=== PATIENT | male | born 1950 | race African-American/Black ===

== ENCOUNTER 2019-06-15 15:10 | Inpatient (IN) | payer MEDICAID, MEDICARE ==
[~2019-06-15] VITALS: Ht 180.3 cm; Wt 93.9 kg
[~2019-06-15 15:10] MED LIST: ARIP15TA2 PO; BUPR-93 PO; ESCI20TA PO; MIRT15 PO; VITAD1000 PO
[2019-06-15] MEDS ORDERED: ESCI20TA PO (15:35)
[2019-06-15] MEDS ORDERED: SERT100T12 PO (15:35)
[2019-06-15] MEDS ORDERED: QUET200T PO (15:35)
[2019-06-15] MEDS ORDERED: ARIP10TA8 PO (15:35)
[2019-06-15] MEDS ORDERED: BUPR100 PO (15:35)
[2019-06-15] MEDS ORDERED: QUEtiapine FUMARATE 100 MG TABLET PO ONE (16:00)
[2019-06-15 16:04] LABS: BASOPHILS % (AUTO) 0.7 % (0.0-2.0); EOSINOPHILS % (AUTO) 2.5 % (1.0-6.0); HEMATOCRIT 49.4 % (41-53); HEMOGLOBIN 15.8 g/dL (13.5-17.5); LYMPHOCYTES # (AUTO) 1.1 K/uL (1.0-4.8); LYMPHOCYTES % (AUTO) 20.1 % (22.0-44.0); MEAN CORPUSCULAR HEMOGLOBIN 26.9 pg (26.0-34.0); MEAN CORPUSCULAR HGB CONC 31.9 G/dL (31.0-37.0); MEAN CORPUSCULAR VOLUME 84 fL (80-100); MONOCYTES # (AUTO) 0.6 K/uL (0.1-1.0); MONOCYTES % (AUTO) 11.1 % (2.0-9.0); NEUTROPHILS # (AUTO) 3.5 K/uL (1.8-7.7); NEUTROPHILS % (AUTO) 65.6 % (40.0-70.0); PLATELET COUNT (AUTO) 352 K/uL (150-450); RED BLOOD CELL COUNT(AUTO) 5.86 MIL/uL (4.50-5.90); RED CELL DISTRIBUTION WIDTH 13.6 % (11.5-14.5)
[2019-06-15 16:33] LABS: ALBUMIN 4.1 g/dL (3.4-5.0); ALKALINE PHOSPHATASE 158 U/L (46-116); ASPARTATE AMINOTRANSFERASE 24 U/L (15-37); BILIRUBIN,TOTAL 1.7 mg/dL (0.1-1.0); CALCIUM, TOTAL 9.3 mg/dL (8.8-10.5); CHLORIDE 100 mmol/L (98-107); CREATININE 1.78 mg/dL (0.60-1.30); GLOMERULAR FILTR. RATE CALC 46 mL/min (>60); GLUCOSE,RANDOM 158 mg/dL (70-110); POTASSIUM 4.3 mmol/L (3.5-5.1); SODIUM SERUM 136 mmol/L (136-145); TOTAL PROTEIN, SERUM 7.8 g/dL (6.4-8.2)
[2019-06-15 16:43] LABS: ALANINE AMINOTRANSFERASE 25 U/L (12-78); ANION GAP 12 mmol/L (8-16); CARBON DIOXIDE 24 mmol/L (22-29); UREA NITROGEN, BLOOD 23 mg/dL (7-18)
[2019-06-15] MEDS ORDERED: HALOPERIDOL 5 MG TABLET PO PRN (17:15)
[2019-06-15] MEDS ORDERED: LORazepam 2 MG TABLET PO PRN (17:15)
[2019-06-15] MEDS ORDERED: ZOLPIDEM TARTRATE 10 MG TABLET PO PRN (17:15)
[2019-06-15] MEDS ORDERED: IBUPROFEN 400 MG TABLET PO PRN (17:30)
[2019-06-15] MEDS ORDERED: ACETAMINOPHEN 325 MG TABLET PO PRN (17:30)
[2019-06-15] MEDS ORDERED: PNEUMOCOCCAL VACCINE POLYVALENT 0.5 ML VIAL [PPSV23] IM ONE (21:00)
[2019-06-15 21:13] VITALS: BP 109/70
[2019-06-16 05:56] VITALS: BP 105/68
[2019-06-16 08:03] VITALS: BP 143/88
[2019-06-16 09:05] LABS: BASOPHILS % (AUTO) 0.8 % (0.0-2.0); EOSINOPHILS % (AUTO) 5.3 % (1.0-6.0); HEMATOCRIT 46.6 % (41-53); HEMOGLOBIN 14.9 g/dL (13.5-17.5); LYMPHOCYTES # (AUTO) 1.8 K/uL (1.0-4.8); LYMPHOCYTES % (AUTO) 31.8 % (22.0-44.0); MEAN CORPUSCULAR HGB CONC 31.9 G/dL (31.0-37.0); MEAN CORPUSCULAR VOLUME 85 fL (80-100); MONOCYTES # (AUTO) 0.7 K/uL (0.1-1.0); MONOCYTES % (AUTO) 12.4 % (2.0-9.0); NEUTROPHILS # (AUTO) 2.9 K/uL (1.8-7.7); NEUTROPHILS % (AUTO) 49.7 % (40.0-70.0); PLATELET COUNT (AUTO) 295 K/uL (150-450); RED CELL DISTRIBUTION WIDTH 13.5 % (11.5-14.5)
[2019-06-16 09:15] LABS: HEMOGLOBIN A1C 5.7 % (4.5-6.2)
[2019-06-16 09:33] LABS: ALBUMIN 3.7 g/dL (3.4-5.0); BILIRUBIN,TOTAL 0.7 mg/dL (0.1-1.0); CALCIUM, TOTAL 9.2 mg/dL (8.8-10.5); CHOL/HDL RATIO 5.1 (4.2-7.3); CREATININE 1.44 mg/dL (0.60-1.30); FREE T4 (FREE THYROXINE) 0.81 ng/dL (0.76-1.46); POTASSIUM 4.9 mmol/L (3.5-5.1); THYROID STIMULATING HORMONE 0.42 uIU/mL (0.36-3.74); TOTAL PROTEIN, SERUM 6.7 g/dL (6.4-8.2)
[2019-06-16] MEDS: ARIPiprazole 10 MG TABLET PO SCH (13:19)
[2019-06-16] MEDS: BuPROPion HCL XL 150 MG ER TABLET PO SCH (13:19)
[2019-06-16 16:05] VITALS: BP 106/67
[2019-06-16] MEDS: QUEtiapine FUMARATE 200 MG TABLET PO SCH (20:31)
[2019-06-17 03:21] VITALS: BP 130/83
[2019-06-17 08:17] VITALS: BP 110/62
[2019-06-17] MEDS: BuPROPion HCL XL 150 MG ER TABLET PO SCH (08:31)
[2019-06-17] MEDS: ARIPiprazole 10 MG TABLET PO SCH (08:31)
[2019-06-17] MEDS: NYSTATIN 15 GM POWDER BOTTLE TP SCH ×2 (09:30→16:32)
[2019-06-17] MEDS: ESCITALOPRAM OXALATE 10 MG TABLET PO SCH (12:02)
[2019-06-17] MEDS ORDERED: GuaiFENesin/D-METHORPHAN [SUGAR-FREE] 200-20MG/10 ML SYRUP UDCUP PO PRN (14:45)
[2019-06-17] MEDS ORDERED: PETROLATUM,WHITE 28 GM JELLY TP PRN (14:45)
[2019-06-17] MEDS ORDERED: DOCUSATE SODIUM 100 MG CAPSULE PO PRN (14:45)
[2019-06-17] MEDS ORDERED: LOPERAMIDE HCL 2 MG CAPSULE PO PRN (14:45)
[2019-06-17] MEDS ORDERED: CloNIDine HCL 0.1 MG TABLET PO PRN (14:45)
[2019-06-17] MEDS ORDERED: ONDANSETRON HCL 4 MG TABLET PO PRN (14:45)
[2019-06-17] MEDS ORDERED: ACETAMINOPHEN 325 MG TABLET PO PRN (14:45)
[2019-06-17] MEDS ORDERED: MAGNESIUM HYDROXIDE SUSPENSION 30 ML UDCUP PO PRN (14:45)
[2019-06-17] MEDS ORDERED: IBUPROFEN 400 MG TABLET PO PRN (14:45)
[2019-06-17] MEDS ORDERED: MAG HYDROX/AL HYDROX/SIMETH ES 30 ML SUSPENSION UDCUP PO PRN (14:45)
[2019-06-17] MEDS ORDERED: ALBUTEROL SULFATE HFA 90 MCG/PUFF 8 GM INHALER IH PRN (14:45)
[2019-06-17] MEDS ORDERED: NICOTINE 14 MG/24 HOUR PATCH TD PRN (14:45)
[2019-06-17] MEDS: DENTURE ADHESIVE 68 GM CREAM DT PRN (15:55)
[2019-06-17 16:00] VITALS: BP 118/73
[2019-06-17] MEDS: QUEtiapine FUMARATE 200 MG TABLET PO SCH (20:30)
[2019-06-18 00:20] VITALS: BP 121/68
[2019-06-18 08:15] VITALS: BP 122/71
[2019-06-18] MEDS: ARIPiprazole 10 MG TABLET PO SCH (08:46)
[2019-06-18] MEDS: ESCITALOPRAM OXALATE 10 MG TABLET PO SCH (08:46)
[2019-06-18] MEDS: NYSTATIN 15 GM POWDER BOTTLE TP SCH (08:46)
[2019-06-18] MEDS: BuPROPion HCL XL 150 MG ER TABLET PO SCH (08:46)
[2019-06-18] MEDS: DENTURE ADHESIVE 68 GM CREAM DT PRN (10:43)
[2019-06-18 16:00] VITALS: BP 134/90
[2019-06-18] MEDS ORDERED: BUPR-93 PO (16:13)
[2019-06-18] MEDS ORDERED: ESCI10TA PO (16:13)
== END 2019-06-18 18:52 | disposition home or self-care (01) | DRG 885 ==
LOC: EMS 15:11 → UNDOADMIN 19:10 → B2X 19:10
PROVIDERS: ADMIT Psychiatry & Neurology Child & Adolescent Psychiatry; ATTEND Psychiatry & Neurology Child & Adolescent Psychiatry
DX: F25.1 Schizoaffective disorder, depressive type (principal); N18.9 Chronic kidney disease, unspecified; N17.9 Acute kidney failure, unspecified; R45.851 Suicidal ideations; F41.1 Generalized anxiety disorder; F43.10 Post-traumatic stress disorder, unspecified; G47.00 Insomnia, unspecified; M17.0 Bilateral primary osteoarthritis of knee; F17.210 Nicotine dependence, cigarettes, uncomplicated; Z79.899 Other long term (current) drug therapy; Z91.14 Patient's other noncompliance with medication regimen
CPT/HCPCS: 83036; 84439; 84443; G0480

== ENCOUNTER 2019-11-01 15:17 | Inpatient (IN) | payer OTHER ==
[~2019-11-01] VITALS: Ht 180.3 cm; Wt 120.5 kg
[~2019-11-01 15:17] MED LIST changes: +ARIP10TA8 PO; -ARIP15TA2 PO; +ESCI10TA PO; -ESCI20TA PO; -MIRT15 PO; +QUET200T PO; -VITAD1000 PO
[2019-11-01] MEDS ORDERED: 0.9% SODIUM CHLORIDE 10 ML SYRINGE IVP PRN (18:00)
[2019-11-01 18:18] LABS: EOSINOPHILS % (AUTO) 11.7 % (1.0-6.0); HEMATOCRIT 43.7 % (41-53); HEMOGLOBIN 14.3 g/dL (13.5-17.5); LYMPHOCYTES # (AUTO) 1.5 K/uL (1.0-4.8); MEAN CORPUSCULAR HEMOGLOBIN 27.3 pg (26.0-34.0); MEAN CORPUSCULAR HGB CONC 32.8 G/dL (31.0-37.0); MEAN CORPUSCULAR VOLUME 83 fL (80-100); MONOCYTES # (AUTO) 0.6 K/uL (0.1-1.0); MONOCYTES % (AUTO) 10.4 % (2.0-9.0); NEUTROPHILS # (AUTO) 3.2 K/uL (1.8-7.7); NEUTROPHILS % (AUTO) 51.9 % (40.0-70.0); PLATELET COUNT (AUTO) 287 K/uL (150-450); RED BLOOD CELL COUNT(AUTO) 5.24 MIL/uL (4.50-5.90); RED CELL DISTRIBUTION WIDTH 13.7 % (11.5-14.5)
[2019-11-01 18:20] LABS: APPEARANCE,URINE CLEAR (CLEAR); BILIRUBIN,URINE NEGATIVE (NEGATIVE); GLUCOSE, URINE (UA) NEGATIVE (NEGATIVE); KETONES,URINE NEGATIVE (NEGATIVE); LEUKOCYTE ESTERASE ,URINE NEGATIVE (NEGATIVE); NITRATE,URINE NEGATIVE (NEGATIVE); OCCULT BLOOD,URINE NEGATIVE (NEGATIVE); PH,URINE 5.5 (5.0-8.0); PROTEIN,URINE NEGATIVE (NEGATIVE); UROBILINOGEN,URINE 0.2 mg/dL (<=1.0)
[2019-11-01 18:31] LABS: ANION GAP 8 mmol/L (8-16); CALCIUM, TOTAL 8.9 mg/dL (8.8-10.5); CARBON DIOXIDE 28 mmol/L (22-29); CHLORIDE 105 mmol/L (98-107); CREATININE 1.28 mg/dL (0.60-1.30); GLOMERULAR FILTR. RATE CALC > 60 mL/min (>60); GLUCOSE,RANDOM 95 mg/dL (70-110); POTASSIUM 4.1 mmol/L (3.5-5.1); SODIUM SERUM 141 mmol/L (136-145); UREA NITROGEN, BLOOD 11 mg/dL (7-18)
[2019-11-01 18:37] LABS: ALANINE AMINOTRANSFERASE 38 U/L (12-78); ALBUMIN 3.7 g/dL (3.4-5.0); ALKALINE PHOSPHATASE 174 U/L (46-116); ASPARTATE AMINOTRANSFERASE 25 U/L (15-37); BILIRUBIN,TOTAL 0.6 mg/dL (0.1-1.0); TOTAL PROTEIN, SERUM 7.3 g/dL (6.4-8.2)
[2019-11-01 18:39] LABS: LACTIC ACID 0.8 mmol/L (0.4-2.0)
[2019-11-01] MEDS ORDERED: PIPERACILLIN/TAZO 3.375 GM/D5W 50 ML IV ONE (19:45)
[2019-11-01] MEDS ORDERED: VANCOMYCIN HCL 1 GM/D5% WATER 200 ML IV ONE (20:00)
[2019-11-01] MEDS ORDERED: ACETAMINOPHEN 325 MG TABLET PO PRN (20:00)
[2019-11-01] MEDS ORDERED: MORPHINE SULFATE 2 MG/ML SYRINGE IVP PRN (20:00)
[2019-11-01] MEDS ORDERED: MAGNESIUM HYDROXIDE SUSPENSION 30 ML UDCUP PO PRN (20:00)
[2019-11-01] MEDS ORDERED: OxyCODONE HCL/ACETAMINOPHEN 5-325 MG TABLET PO PRN (20:00)
[2019-11-01] MEDS: DOCUSATE SODIUM 100 MG CAPSULE PO SCH (21:00)
[2019-11-01] MEDS: QUEtiapine FUMARATE 100 MG TABLET PO SCH (21:19)
[2019-11-01 23:30] VITALS: BP 125/66
[2019-11-02] MEDS ORDERED: SODIUM CHLORIDE 0.9% 500 ML IV ONE (03:53)
[2019-11-02] MEDS: PIPERACILLIN/TAZO 3.375 GM/D5W 50 ML IV SCH ×4 (04:05→21:22)
[2019-11-02] MEDS: HEPARIN SODIUM,PORCINE 5,000 UNITS/ML VIAL SQ SCH ×4 (04:06→23:55)
[2019-11-02 04:58] VITALS: BP 128/73
[2019-11-02 07:51] VITALS: BP 146/76
[2019-11-02] MEDS: FAMOTIDINE 20 MG TABLET PO SCH (08:52)
[2019-11-02] MEDS: ASPIRIN 81 MG CHEWABLE TABLET PO SCH (08:52)
[2019-11-02] MEDS: DOCUSATE SODIUM 100 MG CAPSULE PO SCH ×2 (08:53→21:22)
[2019-11-02 11:21] VITALS: BP 127/69
[2019-11-02 16:05] VITALS: BP 120/80
[2019-11-02 20:05] VITALS: BP 137/73
[2019-11-02] MEDS: QUEtiapine FUMARATE 100 MG TABLET PO SCH (21:22)
[2019-11-02 23:10] VITALS: BP 144/70
[2019-11-03] MEDS: PIPERACILLIN/TAZO 3.375 GM/D5W 50 ML IV SCH ×2 (04:39→09:11)
[2019-11-03 04:40] VITALS: BP 141/75
[2019-11-03 07:48] VITALS: BP 132/80
[2019-11-03] MEDS: HEPARIN SODIUM,PORCINE 5,000 UNITS/ML VIAL SQ SCH (07:53)
[2019-11-03] MEDS: DOCUSATE SODIUM 100 MG CAPSULE PO SCH (08:27)
[2019-11-03] MEDS: FAMOTIDINE 20 MG TABLET PO SCH (08:27)
[2019-11-03] MEDS: ASPIRIN 81 MG CHEWABLE TABLET PO SCH (08:27)
[2019-11-03] MEDS ORDERED: FLUC50TA PO (09:39)
[2019-11-03] MEDS ORDERED: FLUCONAZOLE 100 MG TABLET PO ONE (09:45)
[2019-11-03 11:37] VITALS: BP 142/82
== END 2019-11-03 15:00 | disposition home or self-care (01) | DRG 728 ==
LOC: EMS 15:19 → 4E 22:36
PROVIDERS: ADMIT Internal Medicine; ATTEND Internal Medicine
DX: N49.2 Inflammatory disorders of scrotum (principal); F20.9 Schizophrenia, unspecified; M19.90 Unspecified osteoarthritis, unspecified site; F32.9 Major depressive disorder, single episode, unspecified; E66.9 Obesity, unspecified; F43.10 Post-traumatic stress disorder, unspecified; F99 Mental disorder, not otherwise specified; I86.1 Scrotal varices; Z87.891 Personal history of nicotine dependence; Z68.37 Body mass index [BMI] 37.0-37.9, adult
CPT/HCPCS: 76870; 83605; 87040; 87081; 96365; G0378; J1644; J2543; J3370; J7040

== ENCOUNTER 2020-09-24 13:07 | Emergency (ER) | payer OTHER ==
[~2020-09-24] VITALS: Ht 182.9 cm; Wt 127.3 kg
[~2020-09-24 13:07] MED LIST changes: -ARIP10TA8 PO; +ESCI-8 PO; -ESCI10TA PO; +FLUC50TA PO
[2020-09-24 14:25] LABS: COVID AG,FIA SOURCE NASOPHARYNGEAL
[2020-09-24 14:34] LABS: BASOPHILS % (AUTO) 0.9 % (0.0-2.0); EOSINOPHILS % (AUTO) 6.6 % (1.0-6.0); HEMATOCRIT 45.8 % (41-53); HEMOGLOBIN 14.8 g/dL (13.5-17.5); LYMPHOCYTES # (AUTO) 1.5 K/uL (1.0-4.8); MEAN CORPUSCULAR HEMOGLOBIN 26.8 pg (26.0-34.0); MEAN CORPUSCULAR HGB CONC 32.3 G/dL (31.0-37.0); MEAN CORPUSCULAR VOLUME 83 fL (80-100); MONOCYTES # (AUTO) 0.8 K/uL (0.1-1.0); MONOCYTES % (AUTO) 10.7 % (2.0-9.0); NEUTROPHILS # (AUTO) 4.3 K/uL (1.8-7.7); NEUTROPHILS % (AUTO) 60.8 % (40.0-70.0); PLATELET COUNT (AUTO) 322 K/uL (150-450); RED BLOOD CELL COUNT(AUTO) 5.52 MIL/uL (4.50-5.90); RED CELL DISTRIBUTION WIDTH 13.7 % (11.5-14.5)
[2020-09-24] MEDS ORDERED: MICONAZOLE NITRATE 2% 30 GM CREAM TP ONE (14:45)
[2020-09-24 14:56] LABS: ANION GAP 9 mmol/L (8-16); CALCIUM, TOTAL 9.1 mg/dL (8.8-10.5); CARBON DIOXIDE 29 mmol/L (22-29); CHLORIDE 105 mmol/L (98-107); CREATININE 1.39 mg/dL (0.60-1.30); GLUCOSE,RANDOM 102 mg/dL (70-110); POTASSIUM 3.8 mmol/L (3.5-5.1); SODIUM SERUM 143 mmol/L (136-145); UREA NITROGEN, BLOOD 14 mg/dL (7-18)
[2020-09-24 15:01] LABS: ALANINE AMINOTRANSFERASE 43 U/L (12-78); ALBUMIN 3.8 g/dL (3.4-5.0); ALKALINE PHOSPHATASE 179 U/L (46-116); ASPARTATE AMINOTRANSFERASE 29 U/L (15-37); BILIRUBIN,TOTAL 0.7 mg/dL (0.1-1.0); GLOMERULAR FILTR. RATE CALC > 60 mL/min (>60); TOTAL PROTEIN, SERUM 7.9 g/dL (6.4-8.2)
[2020-09-24] MEDS ORDERED: MECLIZINE HCL 25 MG TABLET PO ONE (15:30)
[2020-09-24 15:55] VITALS: BP 130/80
[2020-09-24 18:19] LABS: GLUCOSE,POINT OF CARE 83 MG/DL (70-110)
== END 2020-09-24 16:21 | disposition home or self-care (01) ==
LOC: EMS 13:22
DX: R42 Dizziness and giddiness (principal); R11.2 Nausea with vomiting, unspecified; Z20.828 Contact with and (suspected) exposure to other viral communicable diseases; F31.9 Bipolar disorder, unspecified; F20.9 Schizophrenia, unspecified; F17.210 Nicotine dependence, cigarettes, uncomplicated; Z79.899 Other long term (current) drug therapy
CPT/HCPCS: 70450; 82948; 87426; 93005

== ENCOUNTER 2024-06-20 14:26 | Emergency (ER) | payer OTHER ==
[~2024-06-20] VITALS: Ht 180.3 cm; Wt 121.8 kg
[~2024-06-20 14:26] MED LIST changes: +BUPR-514 PO; -BUPR-93 PO
[2024-06-20 14:40] VITALS: TEMP 97.9
[2024-06-20 15:20] LABS: BASOPHILS % (AUTO) 0.7 % (0.0-2.0); HEMATOCRIT 45.8 % (41-53); HEMOGLOBIN 14.7 g/dL (13.5-17.5); LYMPHOCYTES # (AUTO) 1.4 K/uL (1.0-4.8); LYMPHOCYTES % (AUTO) 16.8 % (22.0-44.0); MEAN CORPUSCULAR HEMOGLOBIN 26.3 pg (26.0-34.0); MEAN CORPUSCULAR VOLUME 82 fL (80-100); MONOCYTES # (AUTO) 0.8 K/uL (0.1-1.0); MONOCYTES % (AUTO) 10.2 % (2.0-9.0); NEUTROPHILS # (AUTO) 5.7 K/uL (1.8-7.7); NEUTROPHILS % (AUTO) 69.3 % (40.0-70.0); PLATELET COUNT (AUTO) 328 K/uL (150-450); RED BLOOD CELL COUNT(AUTO) 5.59 MIL/uL (4.50-5.90); RED CELL DISTRIBUTION WIDTH 14.7 % (11.5-14.5); WHITE BLOOD COUNT (AUTO) 8.2 K/uL (4.5-11.0)
[2024-06-20 15:26] LABS: ANION GAP 10 mmol/L (8-16); CALCIUM, TOTAL 8.6 mg/dL (8.8-10.5); CARBON DIOXIDE 24 mmol/L (22-29); CHLORIDE 101 mmol/L (98-107); CREATININE 1.21 mg/dL (0.60-1.30); GLOMERULAR FILTR. RATE CALC > 60 mL/min (>60); GLUCOSE,RANDOM 105 mg/dL (70-110); SODIUM SERUM 135 mmol/L (136-145); UREA NITROGEN, BLOOD 19 mg/dL (7-18)
[2024-06-20 15:35] LABS: TROPONIN I-HIGH SENSITIVITY 8 ng/L (<76)
[2024-06-20 15:37] LABS: B-TYPE NATRIURETIC PEPTIDE 13 pg/mL (0-100)
[2024-06-20 15:39] LABS: ALANINE AMINOTRANSFERASE 56 U/L (12-78); ALBUMIN 3.7 g/dL (3.4-5.0); ALKALINE PHOSPHATASE 123 U/L (46-116); ASPARTATE AMINOTRANSFERASE 34 U/L (15-37); BILIRUBIN,TOTAL 0.5 mg/dL (0.1-1.0); CREATINE KINASE, TOTAL ONLY 136 U/L (39-308); TOTAL PROTEIN, SERUM 7.3 g/dL (6.4-8.2)
[2024-06-20 16:07] LABS: APPEARANCE,URINE CLEAR (CLEAR); BILIRUBIN,URINE NEGATIVE (NEGATIVE); COLOR,URINE LIGHT YELLOW (YELLOW); GLUCOSE, URINE (UA) NEGATIVE (NEGATIVE); KETONES,URINE NEGATIVE (NEGATIVE); LEUKOCYTE ESTERASE ,URINE NEGATIVE (NEGATIVE); NITRATE,URINE NEGATIVE (NEGATIVE); OCCULT BLOOD,URINE NEGATIVE (NEGATIVE); PH,URINE 5.5 (5.0-8.0); PROTEIN,URINE NEGATIVE (NEGATIVE); SPECIFIC GRAVITIY, URINE 1.015 (1.003-1.030); UROBILINOGEN,URINE <=1.0 mg/dL (<=1.0)
[2024-06-20 16:51] LABS: GLUCOMETER DEV NAME(LOC) ERT.5; GLUCOSE,POINT OF CARE 127 MG/DL (70-110)
[2024-06-20 18:40] VITALS: BP 146/92; PULSE 85; RESP 18; O2SAT 99
[2024-06-20] MEDS: QUEtiapine FUMARATE 100 MG TABLET PO ONE (19:55)
== END 2024-06-20 20:07 | disposition home or self-care (01) ==
LOC: EMS 14:26
DX: F20.9 Schizophrenia, unspecified (principal); R42 Dizziness and giddiness; M19.90 Unspecified osteoarthritis, unspecified site; F31.9 Bipolar disorder, unspecified; I10 Essential (primary) hypertension; F17.210 Nicotine dependence, cigarettes, uncomplicated; Z76.0 Encounter for issue of repeat prescription
CPT/HCPCS: 71045; 80053; 81003; 82550; 82962; 83880; 84484; 85025; 93005; 99285; 36415-L1; 36415-TC